=== PATIENT | female | born 1970 | race Hispanic/Latino ===

== ENCOUNTER 2022-10-03 18:17 | Emergency (ER) | payer SELFPAY ==
[~2022-10-03] VITALS: Ht 165.1 cm; Wt 83.0 kg
[2022-10-03] MEDS ORDERED: SODIUM CHLORIDE 0.9% 1000ML 1,000 ML IV SCH (20:15)
[2022-10-03] MEDS ORDERED: IOPAMIDOL 370 MG/ML 100 ML INFUS..BTL INJ ONE (20:55)
[2022-10-04] MEDS ORDERED: CEFUROXIME500 MG PO (00:07)
== END 2022-10-04 00:31 | disposition home or self-care (01) ==
LOC: FSED 18:37
DX: R10.30 Lower abdominal pain, unspecified (principal); K59.00 Constipation, unspecified; N39.0 Urinary tract infection, site not specified; E11.65 Type 2 diabetes mellitus with hyperglycemia; E78.5 Hyperlipidemia, unspecified
CPT/HCPCS: 74177; 80053; 85025; 99283; Q9967; 74160